=== PATIENT | female | born 1945 | race Asian ===

== ENCOUNTER 2020-06-13 13:55 | Emergency (ER) | payer OTHER ==
[2020-06-13 14:15] VITALS: BMI 26.4
[2020-06-13 15:01] LABS: BASO % 0.4 % (0-2.0); EOS % 2.2 % (0-4.5); HEMOGLOBIN 12.6 GM/dL (10.7-15.3); LYMPH % 35.1 % (8-40); MCH 29.6 pg (25.7-33.7); MCHC 33.2 g/dl (32.0-36.0); MEAN CELL VOLUME 89.1 fl (80-96); MEAN PLT VOLUME 7.9 fl (7.5-11.1); MONO % 6.9 % (3.8-10.2); NEUT % 55.4 % (42.8-82.8); PLATELET COUNT 320 K/MM3 (134-434); RBC 4.26 M/mm3 (3.60-5.2); RDW 13.9 % (11.6-15.6); WHITE BLOOD COUNT 5.3 K/mm3 (4.0-10.0)
[2020-06-13 15:14] LABS: INR 1.11 (0.83-1.09); PROTHROMBIN TIME (PATIENT) 13.4 SEC (9.7-13.0)
[2020-06-13 15:19] LABS: CHLORIDE 103 mmol/L (98-107); SODIUM 137 mmol/L (136-145)
[2020-06-13] MEDS ORDERED: ASPIRIN 81 MG CHEWABLE TABLETS PO ONE (15:19)
[2020-06-13 15:21] LABS: CALCIUM 9.4 mg/dL (8.5-10.1)
[2020-06-13 15:22] LABS: ALBUMIN 3.6 g/dl (3.4-5.0); ANION GAP 5 MMOL/L (8-16); BLOOD UREA NITROGEN 16.4 mg/dL (7-18); CO2 29 mmol/L (21-32); GLUCOSE,RANDOM 116 mg/dL (74-106); LIPASE 180 U/L (73-393); MAGNESIUM 2.3 mg/dL (1.8-2.4)
[2020-06-13 15:25] LABS: CREATININE 0.7 mg/dL (0.55-1.3); SGOT/AST 79 U/L (15-37); SGPT/ALT 68 U/L (13-61)
[2020-06-13 15:26] LABS: BILIRUBIN,TOTAL 0.4 mg/dL (0.2-1)
[2020-06-13 15:27] LABS: TOT PROT 7.4 g/dl (6.4-8.2)
[2020-06-13 15:28] LABS: ALK PHOS 137 U/L (45-117)
[2020-06-13] MEDS ORDERED: ASPIRIN 81 MG CHEWABLE TABLETS ONE (15:40)
[2020-06-13 16:56] LABS: CHOLESTEROL 222 mg/dL (50-200); TRIGLYCERIDES 134 mg/dL (0-150)
[2020-06-13 16:58] LABS: LDL CHOLESTEROL (ONLY SJRH) 127 mg/dL (5-100)
[2020-06-13 16:59] LABS: HDL CHOLESTEROL 55 mg/dL (40-60)
[2020-06-13 17:01] LABS: N-TERMINAL BNP 135.6 pg/ml (5-125)
[2020-06-13 19:20] VITALS: BP 140/69; PULSE 81; TEMP 97.9
== END 2020-06-13 19:21 | disposition home or self-care (01) ==
LOC: JER 13:55
DX: R07.9 Chest pain, unspecified (principal)
CPT/HCPCS: 36415; 71046-TC-FY; 80053; 80061; 82550; 83036; 83690; 83721; 83735; 83880; 84443; 84484; 85025; 85610; 85730; 93005; 93010; 99285-25